=== PATIENT | male | born 1985 ===

== ENCOUNTER 2021-05-01 13:00 | Day surgery (SDC) | payer OTHER ==
[~2021-05-01 13:00] MED LIST: HUMIRA PO; METHOTREXATE PO
== END 2021-05-01 18:50 | disposition home or self-care (01) ==
LOC: CIR.AMB 13:00
PROVIDERS: ATTEND Orthopaedic Surgery Hand Surgery
DX: S63.592A Other specified sprain of left wrist, initial encounter (principal); Z20.822 Contact with and (suspected) exposure to COVID-19